=== PATIENT | male | born 1955 | race Caucasian/White ===

== ENCOUNTER 2020-02-25 16:05 | Emergency (ER) | payer MEDICAID ==
[~2020-02-25] VITALS: Ht 177.8 cm; Wt 80.5 kg
[2020-02-25 17:19] VITALS: BP 146/92
[2020-02-25] MEDS ORDERED: HYDROcodone/acetaminophen 5mg/325mg tablet PO ONE (17:35)
[2020-02-25] MEDS ORDERED: cyclobenzaprine 10mg tablet PO ONE (18:30)
[2020-02-25] MEDS ORDERED: ketorolac tromethamine 15mg/ml inj. IM ONE (18:30)
[2020-02-25] MEDS ORDERED: IBUP-1984 PO (18:31)
[2020-02-25] MEDS ORDERED: ORPH100T2 PO (18:31)
== END 2020-02-25 20:10 | disposition home or self-care (01) ==
LOC: ER 16:06
DX: G89.29 Other chronic pain (principal); M54.6 Pain in thoracic spine; M06.9 Rheumatoid arthritis, unspecified; Z86.73 Personal history of transient ischemic attack (TIA), and cerebral infarction without residual deficits; Z59.0 Homelessness; Z56.0 Unemployment, unspecified; Z79.899 Other long term (current) drug therapy
CPT/HCPCS: 96372; 99283; J1885

== ENCOUNTER 2021-03-25 13:39 | Emergency (ER) | payer MEDICAID ==
[~2021-03-25] VITALS: Ht 180.3 cm; Wt 76.4 kg
[~2021-03-25 13:39] MED LIST: ORPH100T2 PO
[2021-03-25 13:52] VITALS: BP 118/66
[2021-03-25] MEDS ORDERED: TETanus/Pertussis (Acell)/Diphther VAC/PF (Tdap-Adult) 0.5ml syringe IMVAC ONE (18:30)
[2021-03-25] MEDS ORDERED: LIDOcaine 1% W/epiNEPHrine 1:200,000 10ml vial IJ ONE (19:00)
[2021-03-25] MEDS ORDERED: LIDOcaine 1% w/epiNEPHrine 1:200,000 30ml vial IJ ONE (19:30)
[2021-03-25] MEDS ORDERED: cephalexin 250mg capsule PO ONE (20:40)
[2021-03-25] MEDS ORDERED: bacitracin 15gm ointment TP ONE (20:40)
[2021-03-25] MEDS ORDERED: CEPH-585 PO (20:41)
[2021-03-25] MEDS ORDERED: acetaminophen 325mg tablet PO ONE (20:50)
== END 2021-03-25 21:07 | disposition home or self-care (01) ==
LOC: ER 13:41
DX: S51.812A Laceration without foreign body of left forearm, initial encounter (principal); Z86.73 Personal history of transient ischemic attack (TIA), and cerebral infarction without residual deficits; Z56.0 Unemployment, unspecified; Z59.00 Homelessness unspecified; Z79.2 Long term (current) use of antibiotics; Z20.3 Contact with and (suspected) exposure to rabies; Z79.899 Other long term (current) drug therapy; W18.30XA Fall on same level, unspecified, initial encounter; Y93.89 Activity, other specified; Y92.89 Other specified places as the place of occurrence of the external cause; Y99.8 Other external cause status
CPT/HCPCS: 12034; 90471; 90715; 99284

== ENCOUNTER 2021-03-27 12:00 | Emergency (ER) | payer MEDICAID ==
[~2021-03-27] VITALS: Ht 180.3 cm; Wt 76.0 kg
[~2021-03-27 12:00] MED LIST changes: +CEPH-585 PO
[2021-03-27 12:32] VITALS: BP 137/88
[2021-03-27] MEDS ORDERED: ibuprofen 200mg tablet PO ONE (15:35)
[2021-03-27] MEDS ORDERED: cephalexin 500mg capsule PO ONE (15:35)
[2021-03-27] MEDS ORDERED: HYDROcodone/acetaminophen 5mg/325mg tablet PO ONE (15:35)
[2021-03-27] MEDS ORDERED: CEPH-585 PO (15:37)
--- NOTE | 2021-03-27 16:33 | NUR ---
AWAITING [facility] FOR DISCHARGE
== END 2021-03-27 16:51 | disposition home or self-care (01) ==
LOC: ER 12:00
DX: M79.602 Pain in left arm (principal); Z48.00 Encounter for change or removal of nonsurgical wound dressing; I51.9 Heart disease, unspecified; D64.9 Anemia, unspecified; Z59.00 Homelessness unspecified; Z56.0 Unemployment, unspecified
CPT/HCPCS: 51702; 99284

== ENCOUNTER 2023-11-28 06:19 | Emergency (ER) | payer MEDICARE, MEDICAID ==
[~2023-11-28] VITALS: Ht 180.3 cm; Wt 80.0 kg
[~2023-11-28 06:19] MED LIST changes: -CEPH-585 PO; -ORPH100T2 PO; +ORPH100T4 PO
[2023-11-28] MEDS: normal saline 1000ml 1,000 ML IV ONE (07:08)
[2023-11-28 07:22] LABS: BASOPHILS % (AUTO) 0.2 % (0-1); EOSINOPHILS # (AUTO) 0.1 X10'3 (0-0.9); EOSINOPHILS % (AUTO) 1.2 % (0-6); HEMATOCRIT 37.1 % (42.0-52.0); HEMOGLOBIN 12.1 g/dl (14.0-17.9); LYMPHOCYTES % (AUTO) 10.8 % (21-51); MEAN CORPUSCULAR HEMOGLOBIN 27.6 PG (27.0-31.0); MEAN CORPUSCULAR HGB CONC 32.7 g/dL (33.0-36.5); MEAN CORPUSCULAR VOLUME 84.4 FL (78-98); MONOCYTES # (AUTO) 1.1 X10'3 (0-0.9); NEUTROPHILS # (AUTO) 7.1 X10'3 (1.8-7.7); NEUTROPHILS % (AUTO) 75.8 % (42-75); PLATELET COUNT 191 X10'3 (140-440); RED BLOOD COUNT 4.39 X10'6 (4.70-6.10); RED CELL DISTRIBUTION WIDTH 15.8 % (11.5-14.5); WHITE BLOOD COUNT 9.4 X10'3 (4.5-11.0)
[2023-11-28 07:36] LABS: ALANINE AMINOTRANSFERASE 39 U/L (12-78); ALKALINE PHOSPHATASE 122 IU/L (46-116); ANION GAP 12 (8-16); ASPARTATE AMINO TRANSFERASE 28 U/L (10-37); BILIRUBIN,TOTAL 0.4 MG/DL (0.1-1.0); BLOOD UREA NITROGEN 13 MG/DL (7-18); CALCIUM 9.3 MG/DL (8.5-10.1); CHLORIDE 108 MMOL/L (99-107); CREATININE 0.81 MG/DL (0.60-1.10); GLUCOSE 123 MG/DL (70-104); POTASSIUM 3.8 MMOL/L (3.5-5.1); SODIUM 144 MMOL/L (135-145); TOTAL CARBON DIOXIDE 24.1 MMOL/L (24-32); eCRCL 96 ML/MIN; eGFR > 90 ML/MIN
[2023-11-28] MEDS ORDERED: iohexol 300mg/ml 100ml inj. ONE (07:47)
[2023-11-28 09:35] LABS: BILIRUBIN,URINE NEGATIVE (Neg); CLARITY,URINE CLEAR (Clear); COLOR,URINE YELLOW (Yellow); GLUCOSE, URINE NEGATIVE (Neg); KETONES,URINE NEGATIVE (Neg); LEUKOCYTE ESTERASE ,URINE NEGATIVE (Neg); NITRITES, URINE NEGATIVE (Neg); OCCULT BLOOD,URINE NEGATIVE (Neg); PH,URINE 6.5 (4.8-8.0); PROTEIN,URINE NEGATIVE (Neg)
[2023-11-28 09:53] LABS: UA COLLECTION TYPE CLN CATCH MIDSTREAM
[2023-11-28 10:20] VITALS: BP 168/90; PULSE 88; RESP 20; TEMP 98.1; O2SAT 98
[2023-11-28] MEDS: LORazepam 0.5 MG tablet PO SCH (13:46)
== END 2023-11-28 14:02 | disposition home or self-care (01) ==
LOC: ER 06:20
DX: R10.32 Left lower quadrant pain (principal); K59.00 Constipation, unspecified; I25.10 Atherosclerotic heart disease of native coronary artery without angina pectoris; D64.9 Anemia, unspecified; Z86.73 Personal history of transient ischemic attack (TIA), and cerebral infarction without residual deficits; Z88.8 Allergy status to other drugs, medicaments and biological substances; Z79.899 Other long term (current) drug therapy; Z59.00 Homelessness unspecified; Z56.0 Unemployment, unspecified
CPT/HCPCS: 36415; 74177; 80053; 81003; 85025; 96360; 96361; 99285; J7030; Q9967

== ENCOUNTER 2024-05-11 12:34 | Emergency (ER) | payer MEDICARE, MEDICAID ==
[~2024-05-11] VITALS: Ht 180.3 cm; Wt 62.3 kg
[2024-05-11 12:53] VITALS: TEMP 98
[2024-05-11] MEDS: ketorolac trometh 15mg/ml vial 15 MG/ML ML IM ONE (19:03)
[2024-05-11 19:54] VITALS: BP 162/113; PULSE 60; RESP 16; O2SAT 97
== END 2024-05-11 19:58 | disposition home or self-care (01) ==
LOC: ER 12:35
DX: M54.50 Low back pain, unspecified (principal); M79.605 Pain in left leg; I25.10 Atherosclerotic heart disease of native coronary artery without angina pectoris; M06.9 Rheumatoid arthritis, unspecified; Z86.73 Personal history of transient ischemic attack (TIA), and cerebral infarction without residual deficits; Z98.890 Other specified postprocedural states; W01.0XXA Fall on same level from slipping, tripping and stumbling without subsequent striking against object, initial encounter; Y93.89 Activity, other specified; Y92.89 Other specified places as the place of occurrence of the external cause; Y99.8 Other external cause status
CPT/HCPCS: 72100; 96372; 99284; J1885

== ENCOUNTER 2024-05-11 21:51 | Emergency (ER) | payer MEDICARE, MEDICAID ==
[~2024-05-11] VITALS: Ht 180.3 cm; Wt 62.3 kg
[2024-05-11 21:55] VITALS: BP 166/98; PULSE 104; RESP 16; TEMP 98.7; O2SAT 96
== END 2024-05-12 04:01 | disposition home or self-care (01) ==
LOC: ER 21:52
DX: Z00.00 Encounter for general adult medical examination without abnormal findings (principal); M06.9 Rheumatoid arthritis, unspecified; I25.10 Atherosclerotic heart disease of native coronary artery without angina pectoris; Z86.73 Personal history of transient ischemic attack (TIA), and cerebral infarction without residual deficits; Z88.8 Allergy status to other drugs, medicaments and biological substances
CPT/HCPCS: 99283